=== PATIENT | male | born 1995 | race Caucasian/White ===

== ENCOUNTER 2019-06-13 20:59 | Emergency (ER) | payer OTHER ==
[~2019-06-13] VITALS: Ht 177.8 cm; Wt 109.3 kg
[2019-06-13 21:04] VITALS: Ht 177.8 cm; Wt 109.3 kg
[2019-06-13 23:28] VITALS: BP 141/96
== END 2019-06-13 23:29 | disposition home or self-care (01) ==
LOC: ED 20:59
DX: J40 Bronchitis, not specified as acute or chronic (principal); R10.30 Lower abdominal pain, unspecified; F41.9 Anxiety disorder, unspecified; F32.9 Major depressive disorder, single episode, unspecified